=== PATIENT | female | born 1985 | race Caucasian/White ===

== ENCOUNTER → 2017-10-11 | Outpatient (CLI) | payer OTHER ==
[~2017-10-11] MED LIST: PRENTAB26 PO
== END | disposition home or self-care (01) ==
LOC: C.PAPS 10:32
PROVIDERS: ATTEND Physician Assistant
DX: Z12.4 Encounter for screening for malignant neoplasm of cervix (principal)

== ENCOUNTER → 2017-12-25 | Day surgery (SDC) | payer OTHER ==
[2017-11-30 15:21] VITALS: Ht 160 cm; Wt 81.8 kg
--- NOTE | 2017-12-22 17:21 | HISTORY & PHYSICAL EXAMINATION ---
DATE OF ADMISSION: 12/25/2017 The patient is for surgery on 12/25/2017. CHIEF COMPLAINT: Desires sterilization. HISTORY OF PRESENT ILLNESS: The patient is a 32-year-old white female 3, para 2-0-1-2. The patient desires permanent sterilization. Her last menstrual period started 12/18/2017. Her last Pap smear was in September 2017 and this was negative. PAST MEDICAL HISTORY: ALLERGIES: No known drug allergies. MEDICATIONS: None. ILLNESSES: The patient reports a history of anxiety. She also has a history of polycystic ovarian syndrome. She has had migraine headaches in the past. She also suffers from low back pain. PAST SURGICAL HISTORY: She has had a prior LEEP of her cervix. She has undergone Lasik as well as a tooth extraction. FAMILY HISTORY: Her mother has a history of kidney stones. Her maternal grandmother had cervical cancer. Her maternal grandfather had colon cancer. Her paternal grandfather had prostate cancer. There is also a family history of diabetes and hypertension as well as elevated cholesterol. SOCIAL HISTORY: The patient is . She denies smoking cigarettes or drinking alcohol. PHYSICAL EXAMINATION: VITAL SIGNS: Height 5 feet 3 inches and weight 182 pounds. Blood pressure 118/80. HEENT: Grossly within normal limits. NECK: Supple without masses. CHEST: Her lungs are clear without wheezing. HEART: Regular rate and rhythm. No murmurs, gallops or rubs. ABDOMEN: Soft and nontender with no masses palpable. PELVIC: External genitalia normal. Vagina pink and stimulated. Cervix pink and closed with no lesions visible. Uterus within normal limit size and nontender. Adnexa nontender with no masses palpable. EXTREMITIES: No cyanosis, clubbing or edema. IMPRESSION: A 32-year-old old white female 3, para 2-0-1-2, who desires permanent sterilization. PLAN: The patient is for laparoscopic bilateral tubal sterilization by bipolar cauterization, ring placement or excision. The patient is aware of the risks of bleeding, infection, damage to internal organs, possible failure of the procedure, possible risk of the procedure, and possible need for further treatment due to complication. TREVA
[~2017-12-25] VITALS: Ht 160 cm; Wt 81.8 kg
[~2017-12-25] MED LIST changes: +ATROPINE SULFATE 0.1 MG/ML 5ML SYR IV PRN; +BUPIVACAINE 0.5 % 5 MG/1 ML MPF 30ML VIAL ONE; +DEXAMETHASONE SOD INJ 4 MG/ML VIAL ONE; +EpHEDrine SULFATE INJ 50 MG/ML AMP IV PRN; +FENTANYL CITRATE INJ 50 MCG/1 ML 2 ML VIAL IV PRN; +FENTANYL CITRATE INJ 50 MCG/1 ML 2 ML VIAL ONE; +GLYCOPYRROLATE INJ 0.2 MG/ML VIAL ONE; +IBUPROFEN 200 MG TAB ONE; +IBUPROFEN 600 MG TAB PO PRN; +KETOROLAC TROMETHAMINE 30 MG/ML VIAL ONE; +LACTATED RINGER'S 1000ML 1,000 ML IV SCH; +LIDOCAINE HCL 2% 2 ML VIAL (20MG/ML) ONE; +MIDAZOLAM HCL 1 MG/ML 2ML VIAL ONE; +MULT-726 PO; +NEOSTIGMINE METHYLSULFATE 5 MG/5 ML SYR ONE; +ONDANSETRON INJ 2 MG/ML 2 ML VIAL IV PRN; +ONDANSETRON INJ 2 MG/ML 2 ML VIAL ONE; +OXYC-57 PO; +OXYCODONE/ACETAMINOPHEN 5-325 TAB PO PRN; -PRENTAB26 PO; +PROPOFOL IV EMULSION 10 MG/ML 20 ML VIAL IV ONE; +ROCURONIUM BROMIDE 10 MG/ML 5 ML VIAL IV ONE; +SODIUM CHLORIDE 0.9% 1000ML 1,000 ML IV SCH
--- NOTE | 2017-12-25 08:05 | History & Physical Bridge - SC ---
H&P Re-Evaluation Bridge Note: I have examined the patient, reviewed the History & Physical and in the interval since the performance of the History & Physical I have noted the following changes of clinical significance: No changes noted
--- NOTE | 2017-12-25 08:43 | [facility] Post Operative Brief Note ---
Immediate Operative Summary Operative Date Dec 25, 2017. Pre-Operative Diagnosis Request for sterilization Post-Operative Diagnosis same as preop Procedure(s) Performed Laparoscopic Tubal Sterilization With Fallope Rings Surgeon Dr. Javed Supervisor [employer] Surgeon(s) none Estimated Blood Loss 5ml Findings See Below See dictated notes. Normal uterus, tubes and ovaries. Specimens None. Drains None Anesthesia Type General Complication(s) none Disposition Disposition: Recovery Room / PACU
--- NOTE | 2017-12-25 08:56 | Discharge Instructions-SurgCtr ---
Discharge Instructions Date of Service Dec 25, 2017. Visit Reason for Visit: Desires permanent sterilization Discharge Discharge Diagnosis / Problem: S/P Laparoscopic tubal sterilization Discharge Goals Goal(s): Therapeutic intervention Activity Recommendations Activity Limitations: per Instructions/Follow-up section ACTIVITY RECOMMENDATIONS: * Rest the first 2-3 days. You should be back to your normal activity levels by day 3. * No heavy lifting for 2 weeks. * No intercourse, tampons or douching for 2 weeks. * You may shower the next day. * Do not drive anytime that you are taking narcotic pain medicines. RETURN TO SCHOOL/WORK: * May return to school or work after 2-3 days. DIET: Nausea may occur in the immediate post-operative period. If so, take clear liquids such as tea, bouillon, apple juice until all nausea has subsided, then resume usual diet. MEDICATIONS: Resume previous medications unless instructed otherwise by your surgeon. Ibuprofen 200mg 2-3 tablets every 4-6 hours as needed -- OR -- Aleve 2 tablets every 8-12 hours as needed for post-operative discomfort For severe pain, take one tablet percocet every 4 hours. Medications are over the counter except for the percocet. Tylenol may be used if above medications are contraindicated or not preferred. Medication should be taken with food or milk. Do not take on an empty stomach. SPECIAL CARE INSTRUCTIONS: * Check temperature twice daily for one week. report any elevation over 101 degrees. * You may experience some vagina spotting and/or bleeding. This is normal for 1 -2 weeks and should not be heavier than a normal period. If it is unusual in amount, call your physician. * Post-operative discomfort may consist of a sore throat, a "bloated" feeling and pain in the shoulders. these are normal symptoms, which usually only last for 2-3 days. * Remove band-aids tomorrow and shower. There is no need to replace band-aids unless there is drainage or discomfort. FOLLOW UP VISIT: Call your doctor's office for a post-operative 2 week visit if not already scheduled. [phone] Anesthesia . Post Anesthesia Instructions: If you have had General Anesthesia or IV Sedation: * Do not drive today. * Resume driving when surgeon permits. * Do not make important decisions or sign legal documents today. * Call surgeon for: 1. Temperature elevations greater than 101 degrees F. 2. Uncontrollable pain. 3. Excessive bleeding. 4. Persistent nausea and vomiting. 5. Medication intolerance (nausea, vomiting or rash). * For nausea and vomiting use only clear liquids such as: tea, soda, bouillon until nausea subsides, then gradually increase diet as tolerated. * If you have any concerns or questions, call your surgeon's office. If physician is unavailable and it is an emergency, call 911 or go to the nearest emergency room. . Diet Recommendations Home Diet: resume previous diet Procedures Procedures Performed: Laparoscopic Tubal Sterilization With Fallope Rings Pending Studies Studies pending at discharge: no Medical Emergencies . Who to Call and When: Medical Emergencies: If at any time you feel your situation is an emergency, please call 911 immediately. . Non-Emergent Contact Non-Emergency issues call your: [employer] Mounter Call Non-Emergent contact if: temperature is above 100.5, your pain is not controlled, your pain is worsening, wound has increased drainage, wound has increased redness . . "Provider Documentation" section prepared by Rosario Javed. . [place] Drug Monitoring Program Search Results: no issues identified
[2017-12-25 09:35] VITALS: TEMP 36.4
--- NOTE | 2017-12-25 09:41 | Anesthesia Progress Nt - [facility] ---
Anesthesia Post Op Note Date & Time Dec 25, 2017 at 09:41 Vital Signs Pain Intensity: 2 Vital Signs Past 12 Hours Date Time Temp Pulse Resp B/P (MAP) Pulse Ox O2 Delivery O2 Flow Rate FiO2 12/25/17 09:35 36.4 73 18 125/82 (96) 99 Room Air 12/25/17 09:26 77 22 12/25/17 09:26 79 22 98 12/25/17 09:25 121/80 12/25/17 09:25 36.4 98 Room Air 12/25/17 09:22 85 20 99 12/25/17 09:22 84 20 12/25/17 09:20 120/76 12/25/17 09:17 67 15 100 12/25/17 09:17 67 15 12/25/17 09:16 67 17 12/25/17 09:16 67 17 100 12/25/17 09:15 127/77 12/25/17 09:11 72 14 100 12/25/17 09:11 72 14 12/25/17 09:10 125/80 12/25/17 09:09 77 17 12/25/17 09:09 76 17 100 12/25/17 09:08 68 16 12/25/17 09:08 68 16 100 12/25/17 09:05 127/81 12/25/17 09:03 98 17 12/25/17 09:03 98 17 100 12/25/17 09:00 130/81 12/25/17 08:58 80 18 100 12/25/17 08:58 81 18 12/25/17 08:55 128/85 12/25/17 08:54 130/72 12/25/17 08:53 36.3 92 16 130/72 99 Mask 8 12/25/17 07:14 36.6 80 18 129/83 (98) 100 Room Air Notes Mental Status: alert / awake / arousable, participated in evaluation Pt Amnestic to Procedure: Yes Nausea / Vomiting: adequately controlled Pain: adequately controlled Airway Patency, RR, SpO2: stable & adequate BP & HR: stable & adequate Hydration State: stable & adequate Anesthetic Complications: no major complications apparent
[2017-12-25 09:57] VITALS: BP 129/87; PULSE 73; O2SAT 100
--- NOTE | 2017-12-25 10:52 | OPERATIVE REPORT ---
DATE OF OPERATION: 12/25/2017 PREOPERATIVE DIAGNOSIS: Desires sterilization. POSTOPERATIVE DIAGNOSIS: Same. PROCEDURE: Laparoscopic tubal sterilization with Falope rings. SURGEON: Dr. Rosario Javed. ANESTHESIA: General. HUMAN RESOURCES PSYCHOLOGIST: Dr. Almanza. DESCRIPTION OF PROCEDURE: The patient was taken to the operating room, where general anesthesia was administered. After an adequate level was obtained, she was placed in dorsal lithotomy position. Abdomen, vulva, vagina, and cervix were prepped with Betadine solution. The patient was draped. An incision was made at the lower edge of the umbilicus with the scalpel. Veress needle was inserted successfully on the first attempt. The abdomen was insufflated with 2-3 liters of CO2. Veress needle was removed. Laparoscopic trocar and sheath were inserted. Trocar was removed and laparoscope inserted. A second incision was then made suprapubically using the scalpel. The sheath for the banding instrument and trocar were inserted under direct visualization. Trocar was removed and banding instrument inserted. The pelvic organs were visualized. Uterus, tubes, and ovaries appeared normal. There was a window in the cul-de-sac and a photo was taken of this. There was no other obvious endometriosis and no adhesions. Liver edge appeared normal as did what could be seen of the gallbladder. Appendix appeared normal. The right fallopian tube was then banded approximately 3 cm from the cornua. Blanching occurred immediately. This was repeated on the left fallopian tube. Both tubes were identified by their fimbriated ends prior to banding. Ten mL of 0.5% Marcaine were then dripped onto both banded portions of tube. After this was done, the procedure was ended. Gas was allowed to escape from the abdomen. Laparoscopic instruments were removed. The patient tolerated the procedure well. The incisions were closed with interrupted sutures of 3-0 Dexon. Steri-Strips and Band-Aids were placed. Hulka clamp, which had been inserted into the uterus prior to the procedure, was then removed. The red rubber catheter was removed from her bladder as well. It had been used to keep the bladder emptied during the procedure. ESTIMATED BLOOD LOSS: Less than 10 mL. I attest to the content of the Intraoperative Record and any orders documented therein. Any exceptions are noted below. MTDD
== END | disposition home or self-care (01) ==
LOC: X.SURG 06:56
PROVIDERS: ATTEND Obstetrics & Gynecology
DX: Z30.2 Encounter for sterilization (principal); E66.9 Obesity, unspecified; Z68.31 Body mass index [BMI] 31.0-31.9, adult; Z98.818 Other dental procedure status; Z98.890 Other specified postprocedural states; Z84.1 Family history of disorders of kidney and ureter; Z83.3 Family history of diabetes mellitus

== ENCOUNTER → 2018-01-22 | Outpatient (CLI) | payer OTHER ==
[~2018-01-22] MED LIST changes: -ATROPINE SULFATE 0.1 MG/ML 5ML SYR IV PRN; -BUPIVACAINE 0.5 % 5 MG/1 ML MPF 30ML VIAL ONE; -DEXAMETHASONE SOD INJ 4 MG/ML VIAL ONE; -EpHEDrine SULFATE INJ 50 MG/ML AMP IV PRN; -FENTANYL CITRATE INJ 50 MCG/1 ML 2 ML VIAL IV PRN; -FENTANYL CITRATE INJ 50 MCG/1 ML 2 ML VIAL ONE; -GLYCOPYRROLATE INJ 0.2 MG/ML VIAL ONE; -IBUPROFEN 200 MG TAB ONE; -IBUPROFEN 600 MG TAB PO PRN; -KETOROLAC TROMETHAMINE 30 MG/ML VIAL ONE; -LACTATED RINGER'S 1000ML 1,000 ML IV SCH; -LIDOCAINE HCL 2% 2 ML VIAL (20MG/ML) ONE; -MIDAZOLAM HCL 1 MG/ML 2ML VIAL ONE; -NEOSTIGMINE METHYLSULFATE 5 MG/5 ML SYR ONE; -ONDANSETRON INJ 2 MG/ML 2 ML VIAL IV PRN; -ONDANSETRON INJ 2 MG/ML 2 ML VIAL ONE; -OXYCODONE/ACETAMINOPHEN 5-325 TAB PO PRN; -PROPOFOL IV EMULSION 10 MG/ML 20 ML VIAL IV ONE; -ROCURONIUM BROMIDE 10 MG/ML 5 ML VIAL IV ONE; -SODIUM CHLORIDE 0.9% 1000ML 1,000 ML IV SCH
== END | disposition home or self-care (01) ==
LOC: C.LABSPEC 17:36
PROVIDERS: ATTEND Obstetrics & Gynecology
DX: N92.6 Irregular menstruation, unspecified (principal); R39.9 Unspecified symptoms and signs involving the genitourinary system